=== PATIENT | female | born 1980 | race Caucasian/White ===

== ENCOUNTER 2018-12-03 22:07 | Emergency (ER) | payer MEDICAID ==
[~2018-12-03] VITALS: Ht 162.6 cm; Wt 63.6 kg
--- NOTE | 2018-12-03 22:19 | NUR ---
PATIENT TO CT AT THIS TIME.
--- NOTE | 2018-12-03 22:31 | NUR ---
PATIENT BACK FROM CT.
[2018-12-03 23:18] VITALS: BP 100/86
[2018-12-03 23:18] LABS: BASOPHILS # (AUTO) 0.1 X10'3 (0-0.2); BASOPHILS % (AUTO) 1.3 % (0-1); EOSINOPHILS # (AUTO) 0.2 X10'3 (0-0.9); EOSINOPHILS % (AUTO) 3.4 % (0-6); HEMATOCRIT 34.5 % (35.0-45.0); HEMOGLOBIN 11.9 g/dl (12.0-16.0); LYMPHOCYTES # (AUTO) 2.4 X10'3 (1.1-4.8); LYMPHOCYTES % (AUTO) 41.1 % (21-51); MEAN CORPUSCULAR HEMOGLOBIN 32.4 PG (27.0-31.0); MEAN CORPUSCULAR HGB CONC 34.4 g/dL (33.0-36.5); MEAN CORPUSCULAR VOLUME 94.1 FL (78-98); MEAN PLATELET VOLUME 7.1 FL (7.4-10.4); MONOCYTES # (AUTO) 0.5 X10'3 (0-0.9); MONOCYTES % (AUTO) 9.2 % (2-12); NEUTROPHILS # (AUTO) 2.6 X10'3 (1.8-7.7); PLATELET COUNT 342 X10'3 (140-440); RED BLOOD COUNT 3.66 X10'6 (4.20-5.60); RED CELL DISTRIBUTION WIDTH 15.5 % (11.5-14.5); WHITE BLOOD COUNT 5.9 X10'3 (4.5-11.0)
[2018-12-03 23:24] LABS: ALANINE AMINOTRANSFERASE 24 U/L (12-78); ALBUMIN 3.2 G/DL (3.4-5.0); ALBUMIN/GLOBULIN RATIO 0.8 (1.1-1.5); ALKALINE PHOSPHATASE 69 IU/L (46-116); ANION GAP 9 (8-16); ASPARTATE AMINO TRANSFERASE 21 U/L (10-37); BILIRUBIN,TOTAL 0.1 MG/DL (0.1-1.0); BLOOD UREA NITROGEN 16 MG/DL (7-18); BUN/CREATININE RATIO 26.2 (6.6-38.0); CALCIUM 8.5 MG/DL (8.5-10.1); CHLORIDE 105 MMOL/L (99-107); CREATININE 0.61 MG/DL (0.40-0.90); GLUCOSE 94 MG/DL (70-104); SODIUM 140 MMOL/L (135-145); TOTAL CARBON DIOXIDE 26.3 MMOL/L (24-32); eGFR > 90 ML/MIN
[2018-12-03 23:26] LABS: PARTIAL THROMBOPLASTIN TIME 26 SECONDS (22-32)
[2018-12-03 23:27] LABS: TROPONIN I < 0.04 NG/ML (0.0-0.05)
== END 2018-12-03 23:39 | disposition left against medical advice (07) ==
LOC: ER 22:08
DX: R42 Dizziness and giddiness (principal); R47.81 Slurred speech; R47.02 Dysphasia; Z86.73 Personal history of transient ischemic attack (TIA), and cerebral infarction without residual deficits; Z79.82 Long term (current) use of aspirin
CPT/HCPCS: 36415; 70450; 71045; 80053; 82948; 84484; 85025; 85610; 85730; 93005; 99284

== ENCOUNTER 2018-12-05 10:10 | Emergency (ER) | payer MEDICAID ==
[~2018-12-05] VITALS: Ht 157.5 cm; Wt 68.2 kg
[2018-12-05 10:31] VITALS: BP 131/102
== END 2018-12-05 11:25 | disposition left against medical advice (07) ==
LOC: ER 10:11
DX: F10.10 Alcohol abuse, uncomplicated (principal); R42 Dizziness and giddiness; Z86.73 Personal history of transient ischemic attack (TIA), and cerebral infarction without residual deficits
CPT/HCPCS: 93005; 99283

== ENCOUNTER 2019-01-05 18:28 | Emergency (ER) | payer MEDICAID ==
[~2019-01-05] VITALS: Ht 160 cm; Wt 77.2 kg
[2019-01-05] MEDS ORDERED: normal saline 1000ML IV soln IVB ONE (18:40)
[2019-01-05] MEDS ORDERED: ketorolac trometh. 30mg/ml inj. IV ONE (18:40)
[2019-01-05] MEDS ORDERED: ondansetron/PF 4mg/2ml inj IV ONE (18:40)
[2019-01-05] MEDS ORDERED: cloNIDine 0.1 mg tablet PO ONE (18:50)
[2019-01-05 19:01] LABS: URINE HCG NEGATIVE (NEG)
[2019-01-05 19:02] LABS: CLARITY,URINE CLEAR (Clear); COLOR,URINE YELLOW (Yellow); GLUCOSE, URINE NEGATIVE (Neg); KETONES,URINE NEGATIVE (Neg); LEUKOCYTE ESTERASE ,URINE NEGATIVE (Neg); NITRITES, URINE NEGATIVE (Neg); OCCULT BLOOD,URINE NEGATIVE (Neg); PROTEIN,URINE NEGATIVE (Neg); UROBILINOGEN,URINE 0.2 E.U/dL (0.2-1.0)
[2019-01-05 19:04] LABS: BASOPHILS % (AUTO) 0.5 % (0-1); EOSINOPHILS # (AUTO) 0.3 X10'3 (0-0.9); EOSINOPHILS % (AUTO) 3.5 % (0-6); HEMATOCRIT 37.3 % (35.0-45.0); HEMOGLOBIN 12.6 g/dl (12.0-16.0); LYMPHOCYTES # (AUTO) 1.8 X10'3 (1.1-4.8); LYMPHOCYTES % (AUTO) 23.4 % (21-51); MEAN CORPUSCULAR HEMOGLOBIN 32.3 PG (27.0-31.0); MEAN CORPUSCULAR HGB CONC 33.7 g/dL (33.0-36.5); MEAN CORPUSCULAR VOLUME 95.7 FL (78-98); MEAN PLATELET VOLUME 7.5 FL (7.4-10.4); MONOCYTES # (AUTO) 0.7 X10'3 (0-0.9); MONOCYTES % (AUTO) 9.6 % (2-12); NEUTROPHILS # (AUTO) 4.7 X10'3 (1.8-7.7); PLATELET COUNT 287 X10'3 (140-440); RED CELL DISTRIBUTION WIDTH 15.2 % (11.5-14.5); WHITE BLOOD COUNT 7.5 X10'3 (4.5-11.0)
[2019-01-05 19:05] LABS: UA COLLECTION TYPE CLN CATCH MIDSTREAM
[2019-01-05 19:15] LABS: ALANINE AMINOTRANSFERASE 39 U/L (12-78); ALBUMIN 3.5 G/DL (3.4-5.0); ALBUMIN/GLOBULIN RATIO 0.8 (1.1-1.5); ALKALINE PHOSPHATASE 74 IU/L (46-116); ANION GAP 11 (8-16); ASPARTATE AMINO TRANSFERASE 30 U/L (10-37); BILIRUBIN,TOTAL 0.2 MG/DL (0.1-1.0); BLOOD UREA NITROGEN 10 MG/DL (7-18); BUN/CREATININE RATIO 16.1 (6.6-38.0); CALCIUM 8.5 MG/DL (8.5-10.1); CHLORIDE 104 MMOL/L (99-107); CREATININE 0.62 MG/DL (0.40-0.90); GLUCOSE 89 MG/DL (70-104); SODIUM 139 MMOL/L (135-145); TOTAL CARBON DIOXIDE 24.4 MMOL/L (24-32); TOTAL PROTEIN 7.7 G/DL (6.4-8.2); eGFR > 90 ML/MIN
[2019-01-05] MEDS ORDERED: TRAM50TA2 PO (19:44)
[2019-01-05] MEDS ORDERED: HYDROcodone/acetaminophen 10/325mg tab PO ONE (19:45)
--- NOTE | 2019-01-05 20:13 | NUR ---
pt dc ready , has 1 more liter ns, ok per [place], to dc now. pt agreeable to plan.
[2019-01-05 20:14] VITALS: BP 134/92
== END 2019-01-05 20:15 | disposition home or self-care (01) ==
LOC: ER 18:28
DX: R10.84 Generalized abdominal pain (principal); M54.5 Low back pain; R35.0 Frequency of micturition; Z86.73 Personal history of transient ischemic attack (TIA), and cerebral infarction without residual deficits; Z79.899 Other long term (current) drug therapy
CPT/HCPCS: 36415; 74176; 80053; 81003; 81025; 85025; 96374; 96375; 99284; J1885; J2405; J7030

== ENCOUNTER 2019-01-06 09:58 | Emergency (ER) | payer MEDICAID ==
[~2019-01-06] VITALS: Ht 165.1 cm; Wt 600.0 kg
[~2019-01-06 09:58] MED LIST: TRAM50TA2 PO
== END 2019-01-06 13:24 | disposition home or self-care (01) ==
LOC: ER 09:58
DX: J02.9 Acute pharyngitis, unspecified (principal); R11.0 Nausea; F10.99 Alcohol use, unspecified with unspecified alcohol-induced disorder; Z86.73 Personal history of transient ischemic attack (TIA), and cerebral infarction without residual deficits; Z79.899 Other long term (current) drug therapy; Y90.9 Presence of alcohol in blood, level not specified
CPT/HCPCS: 87081; 87880; 99283

== ENCOUNTER 2019-01-12 07:54 | Emergency (ER) | payer MEDICAID ==
[~2019-01-12] VITALS: Ht 160 cm; Wt 77.0 kg
[2019-01-12 08:32] LABS: CLARITY,URINE SLIGHTLY CLOUDY (Clear); COLOR,URINE YELLOW (Yellow); GLUCOSE, URINE NEGATIVE (Neg); KETONES,URINE NEGATIVE (Neg); LEUKOCYTE ESTERASE ,URINE TRACE (Neg); NITRITES, URINE NEGATIVE (Neg); OCCULT BLOOD,URINE NEGATIVE (Neg); PH,URINE 5.5 (4.8-8.0); PROTEIN,URINE NEGATIVE (Neg); UROBILINOGEN,URINE 0.2 E.U/dL (0.2-1.0)
[2019-01-12 08:37] LABS: UA COLLECTION TYPE CLN CATCH MIDSTREAM
[2019-01-12 08:46] LABS: MUCUS STRANDS MODERATE /LPF (Neg); SQUAMOUS EPITHELIAL CELL,UR MANY /LPF (FEW)
[2019-01-12 08:47] LABS: BACTERIA,URINE 1+ /HPF (Neg)
[2019-01-12 08:48] LABS: RBC,URINE NONE SEEN /HPF (0-2)
[2019-01-12] MEDS ORDERED: TRAM50TA2 PO (09:05)
[2019-01-12] MEDS ORDERED: ondansetron 4mg rapidly disintigrating tab PO ONE (09:15)
[2019-01-12] MEDS ORDERED: acetaminophen 325mg tablet PO ONE (09:15)
[2019-01-12 09:30] VITALS: BP 129/85
[2019-01-12 09:43] LABS: CLARITY,URINE CLOUDY (Clear); COLOR,URINE YELLOW (Yellow); GLUCOSE, URINE NEGATIVE (Neg); KETONES,URINE 15 mg/dl (Neg); LEUKOCYTE ESTERASE ,URINE NEGATIVE (Neg); NITRITES, URINE NEGATIVE (Neg); OCCULT BLOOD,URINE NEGATIVE (Neg); PROTEIN,URINE NEGATIVE (Neg); UA COLLECTION TYPE CLN CATCH MIDSTREAM; UROBILINOGEN,URINE 0.2 E.U/dL (0.2-1.0)
[2019-01-12 10:02] LABS: SQUAMOUS EPITHELIAL CELL,UR MANY /LPF (FEW)
[2019-01-12 10:03] LABS: BACTERIA,URINE FEW /HPF (Neg); HYALINE CASTS 0-3 /LPF (NEGATIVE); RBC,URINE NONE SEEN /HPF (0-2); WBC,URINE 0-4 /HPF (0-4)
== END 2019-01-12 10:43 | disposition home or self-care (01) ==
LOC: ER 07:56
DX: M54.5 Low back pain (principal); R11.2 Nausea with vomiting, unspecified; R35.0 Frequency of micturition; Z86.73 Personal history of transient ischemic attack (TIA), and cerebral infarction without residual deficits; Z79.899 Other long term (current) drug therapy
CPT/HCPCS: 72100; 81001; 99284; J2405

== ENCOUNTER 2019-04-25 11:34 | Emergency (ER) | payer MEDICAID ==
[~2019-04-25] VITALS: Ht 157.5 cm; Wt 72.7 kg
[2019-04-25 12:10] LABS: CLARITY,URINE SLIGHTLY CLOUDY (Clear); COLOR,URINE YELLOW (Yellow); GLUCOSE, URINE NEGATIVE (Neg); KETONES,URINE NEGATIVE (Neg); LEUKOCYTE ESTERASE ,URINE SMALL (Neg); NITRITES, URINE NEGATIVE (Neg); OCCULT BLOOD,URINE TRACE-LYSED (Neg); PH,URINE 7.5 (4.8-8.0); PROTEIN,URINE NEGATIVE (Neg); UROBILINOGEN,URINE 0.2 E.U/dL (0.2-1.0)
[2019-04-25 12:11] LABS: UA COLLECTION TYPE CLN CATCH MIDSTREAM
[2019-04-25 12:13] LABS: URINE HCG NEGATIVE (NEG)
[2019-04-25 12:20] LABS: SQUAMOUS EPITHELIAL CELL,UR MANY /LPF (FEW)
[2019-04-25 12:22] LABS: BACTERIA,URINE 1+ /HPF (Neg); RBC,URINE 0-2 /HPF (0-2); WBC,URINE 0-4 /HPF (0-4)
[2019-04-25 13:18] LABS: HCG SERUM QL NEGATIVE
== END 2019-04-25 15:01 | disposition left against medical advice (07) ==
LOC: ER 11:36
DX: Z32.02 Encounter for pregnancy test, result negative (principal); Z86.73 Personal history of transient ischemic attack (TIA), and cerebral infarction without residual deficits
CPT/HCPCS: 36415; 81001; 81025; 84703; 99283

== ENCOUNTER 2020-03-18 08:38 | Emergency (ER) | payer MEDICAID ==
[~2020-03-18] VITALS: Ht 160 cm; Wt 78.0 kg
[2020-03-18 09:13] LABS: BASOPHILS % (AUTO) 0.9 % (0-1); EOSINOPHILS # (AUTO) 0.1 X10'3 (0-0.9); EOSINOPHILS % (AUTO) 3.1 % (0-6); HEMATOCRIT 39.1 % (35.0-45.0); HEMOGLOBIN 13.2 g/dl (12.0-16.0); LYMPHOCYTES % (AUTO) 31.4 % (21-51); MEAN CORPUSCULAR HEMOGLOBIN 34.2 PG (27.0-31.0); MEAN CORPUSCULAR HGB CONC 33.9 g/dL (33.0-36.5); MEAN CORPUSCULAR VOLUME 100.9 FL (78-98); MEAN PLATELET VOLUME 8.4 FL (7.4-10.4); MONOCYTES # (AUTO) 0.4 X10'3 (0-0.9); MONOCYTES % (AUTO) 11.8 % (2-12); NEUTROPHILS # (AUTO) 1.7 X10'3 (1.8-7.7); NEUTROPHILS % (AUTO) 52.8 % (42-75); PLATELET COUNT 195 X10'3 (140-440); RED BLOOD COUNT 3.87 X10'6 (4.20-5.60); RED CELL DISTRIBUTION WIDTH 14.5 % (11.5-14.5); WHITE BLOOD COUNT 3.2 X10'3 (4.5-11.0)
[2020-03-18 09:18] LABS: CLARITY,URINE SLIGHTLY CLOUDY (Clear); COLOR,URINE YELLOW (Yellow); GLUCOSE, URINE NEGATIVE (Neg); KETONES,URINE NEGATIVE (Neg); LEUKOCYTE ESTERASE ,URINE SMALL (Neg); NITRITES, URINE NEGATIVE (Neg); OCCULT BLOOD,URINE TRACE-INTACT (Neg); PROTEIN,URINE TRACE mg/dl (Neg); URINE HCG NEGATIVE (NEG); UROBILINOGEN,URINE 0.2 E.U/dL (0.2-1.0)
[2020-03-18 09:20] LABS: UA COLLECTION TYPE VOIDED
[2020-03-18 09:23] LABS: MUCUS STRANDS MANY /LPF (Neg); SQUAMOUS EPITHELIAL CELL,UR MANY /LPF (FEW)
[2020-03-18 09:24] LABS: BACTERIA,URINE 2+ /HPF (Neg); HYALINE CASTS 0-3 /LPF (NEGATIVE)
[2020-03-18 09:25] LABS: RBC,URINE 0-2 /HPF (0-2); TRANSITIONAL EPI CELLS,URINE FEW /HPF
[2020-03-18 09:25] LABS: PARTIAL THROMBOPLASTIN TIME 25 SECONDS (22-32)
[2020-03-18] MEDS ORDERED: LORazepam 2 mg/ml vial IV ONE (09:25)
[2020-03-18 09:27] LABS: ALANINE AMINOTRANSFERASE 219 U/L (12-78); ALBUMIN 3.4 G/DL (3.4-5.0); ALBUMIN/GLOBULIN RATIO 0.9 (1.1-1.5); ALKALINE PHOSPHATASE 87 IU/L (46-116); ANION GAP 8 (8-16); ASPARTATE AMINO TRANSFERASE 314 U/L (10-37); BILIRUBIN,TOTAL 0.5 MG/DL (0.1-1.0); BLOOD UREA NITROGEN 3 MG/DL (7-18); CALCIUM 8.2 MG/DL (8.5-10.1); CHLORIDE 103 MMOL/L (99-107); GLUCOSE 102 MG/DL (70-104); POTASSIUM 3.8 MMOL/L (3.5-5.1); SODIUM 141 MMOL/L (135-145); TOTAL CARBON DIOXIDE 29.8 MMOL/L (24-32); TOTAL PROTEIN 7.2 G/DL (6.4-8.2); eGFR > 90 ML/MIN
[2020-03-18 09:34] LABS: MAGNESIUM 1.8 MG/DL (1.5-2.4)
[2020-03-18 10:41] VITALS: BP 111/73
== END 2020-03-18 10:43 | disposition home or self-care (01) ==
LOC: ER 08:38
DX: R07.89 Other chest pain (principal); R05 Cough; Q21.1 Atrial septal defect; F43.20 Adjustment disorder, unspecified; F41.9 Anxiety disorder, unspecified; Z86.73 Personal history of transient ischemic attack (TIA), and cerebral infarction without residual deficits; Z87.440 Personal history of urinary (tract) infections; Z72.89 Other problems related to lifestyle
CPT/HCPCS: 36415; 71045; 80053; 81001; 81025; 83735; 83880; 84484; 85025; 85610; 85730; 93005; 96374; 99285; J2060

== ENCOUNTER 2020-05-06 09:35 | Emergency (ER) | payer MEDICAID ==
[~2020-05-06] VITALS: Ht 160 cm; Wt 78.6 kg
[2020-05-06 09:54] LABS: CLARITY,URINE SLIGHTLY CLOUDY (Clear); COLOR,URINE YELLOW (Yellow); GLUCOSE, URINE NEGATIVE (Neg); KETONES,URINE NEGATIVE (Neg); LEUKOCYTE ESTERASE ,URINE SMALL (Neg); NITRITES, URINE NEGATIVE (Neg); OCCULT BLOOD,URINE TRACE-INTACT (Neg); PH,URINE 6.5 (4.8-8.0); PROTEIN,URINE NEGATIVE (Neg)
[2020-05-06 10:00] LABS: UA COLLECTION TYPE CLN CATCH MIDSTREAM
[2020-05-06 10:04] LABS: SQUAMOUS EPITHELIAL CELL,UR MANY /LPF (FEW)
[2020-05-06 10:05] LABS: MUCUS STRANDS MODERATE /LPF (Neg)
[2020-05-06 10:08] LABS: RBC,URINE 0-2 /HPF (0-2)
[2020-05-06 10:09] LABS: BACTERIA,URINE FEW /HPF (Neg)
[2020-05-06] MEDS ORDERED: CEPH-572 PO (10:52)
[2020-05-06] MEDS ORDERED: PHEN-786 PO (10:52)
[2020-05-06 11:06] VITALS: BP 141/103
[2020-05-06 11:26] LABS: CLARITY,URINE SLIGHTLY CLOUDY (Clear); COLOR,URINE YELLOW (Yellow); GLUCOSE, URINE NEGATIVE (Neg); KETONES,URINE NEGATIVE (Neg); LEUKOCYTE ESTERASE ,URINE SMALL (Neg); NITRITES, URINE NEGATIVE (Neg); OCCULT BLOOD,URINE NEGATIVE (Neg); PROTEIN,URINE NEGATIVE (Neg)
[2020-05-06 11:34] LABS: UA COLLECTION TYPE CLN CATCH MIDSTREAM
[2020-05-06 11:37] LABS: MUCUS STRANDS FEW /LPF (Neg); SQUAMOUS EPITHELIAL CELL,UR MODERATE /LPF (FEW)
[2020-05-06 11:41] LABS: BACTERIA,URINE FEW /HPF (Neg)
[2020-05-06 11:42] LABS: WBC,URINE 0-4 /HPF (0-4)
[2020-05-06 11:43] LABS: RBC,URINE NONE SEEN /HPF (0-2)
== END 2020-05-06 12:13 | disposition home or self-care (01) ==
LOC: ER 09:35
DX: N39.0 Urinary tract infection, site not specified (principal); R11.2 Nausea with vomiting, unspecified; I63.9 Cerebral infarction, unspecified; Z79.899 Other long term (current) drug therapy
CPT/HCPCS: 81001; 87088; 99283

== ENCOUNTER 2020-07-10 07:13 | Emergency (ER) | payer MEDICAID ==
[~2020-07-10] VITALS: Ht 157.5 cm; Wt 77.0 kg
[~2020-07-10 07:13] MED LIST changes: +PHEN-786 PO; -TRAM50TA2 PO
[2020-07-10] MEDS ORDERED: normal saline 1000ML IV soln IVB ONE (07:30)
[2020-07-10] MEDS ORDERED: ondansetron/PF 4mg/2ml inj IV ONE (07:30)
[2020-07-10] MEDS ORDERED: pantoprazole 40 MG vial IV ONE (07:30)
[2020-07-10 07:39] LABS: URINE HCG NEGATIVE (NEG)
[2020-07-10 07:41] LABS: CLARITY,URINE CLOUDY (Clear); GLUCOSE, URINE NEGATIVE (Neg); KETONES,URINE 15 mg/dl (Neg); LEUKOCYTE ESTERASE ,URINE LARGE (Neg); NITRITES, URINE POSITIVE (Neg); OCCULT BLOOD,URINE TRACE-INTACT (Neg); PROTEIN,URINE TRACE mg/dl (Neg)
[2020-07-10 07:44] LABS: UA COLLECTION TYPE CLN CATCH MIDSTREAM
[2020-07-10 07:45] LABS: COLOR,URINE DARK YELLOW (Yellow)
[2020-07-10 07:47] LABS: BACTERIA,URINE 4+ /HPF (Neg); MUCUS STRANDS NONE SEEN /LPF (Neg); RBC,URINE 0-2 /HPF (0-2); SQUAMOUS EPITHELIAL CELL,UR MODERATE /LPF (FEW); TRANSITIONAL EPI CELLS,URINE FEW /HPF; WBC CLUMPS,URINE MODERATE /HPF (NEGATIVE); WBC,URINE TNTC /HPF (0-4)
[2020-07-10 08:20] LABS: EOSINOPHILS # (AUTO) 0.1 X10'3 (0-0.9); EOSINOPHILS % (AUTO) 1.7 % (0-6); HEMATOCRIT 41.2 % (35.0-45.0); HEMOGLOBIN 14.1 g/dl (12.0-16.0); LYMPHOCYTES # (AUTO) 0.8 X10'3 (1.1-4.8); LYMPHOCYTES % (AUTO) 22.1 % (21-51); MEAN CORPUSCULAR HGB CONC 34.2 g/dL (33.0-36.5); MEAN CORPUSCULAR VOLUME 105.2 FL (78-98); MEAN PLATELET VOLUME 8.7 FL (7.4-10.4); MONOCYTES # (AUTO) 0.6 X10'3 (0-0.9); MONOCYTES % (AUTO) 15.8 % (2-12); NEUTROPHILS # (AUTO) 2.2 X10'3 (1.8-7.7); NEUTROPHILS % (AUTO) 59.4 % (42-75); PLATELET COUNT 174 X10'3 (140-440); RED BLOOD COUNT 3.92 X10'6 (4.20-5.60); RED CELL DISTRIBUTION WIDTH 13.9 % (11.5-14.5); WHITE BLOOD COUNT 3.8 X10'3 (4.5-11.0)
[2020-07-10] MEDS ORDERED: CefTRIAXone/D5W-Rocephin 1gm 50 ML IV ONE (08:20)
[2020-07-10 08:36] LABS: ALANINE AMINOTRANSFERASE 217 U/L (12-78); ALBUMIN 3.8 G/DL (3.4-5.0); ALBUMIN/GLOBULIN RATIO 0.9 (1.1-1.5); ALKALINE PHOSPHATASE 157 IU/L (46-116); ANION GAP 14 (8-16); ASPARTATE AMINO TRANSFERASE 462 U/L (10-37); BILIRUBIN,TOTAL 1.6 MG/DL (0.1-1.0); BLOOD UREA NITROGEN 6 MG/DL (7-18); BUN/CREATININE RATIO 8.2 (6.6-38.0); CHLORIDE 99 MMOL/L (99-107); CREATININE 0.73 MG/DL (0.40-0.90); GLUCOSE 90 MG/DL (70-104); LIPASE 131 U/L (73-393); POTASSIUM 3.5 MMOL/L (3.5-5.1); SODIUM 140 MMOL/L (135-145); TOTAL CARBON DIOXIDE 27.1 MMOL/L (24-32); TOTAL PROTEIN 8.2 G/DL (6.4-8.2); eGFR 88 ML/MIN
[2020-07-10 08:59] LABS: PLATELET ESTIMATE NORMAL; STOMATOCYTES 1+; TOTAL CELLS COUNTED 100
[2020-07-10] MEDS ORDERED: CEPH500C5 PO (09:20)
[2020-07-10] MEDS ORDERED: ONDA4TAB6 PO (09:21)
[2020-07-10 09:47] VITALS: BP 154/89
== END 2020-07-10 09:48 | disposition home or self-care (01) ==
LOC: ER 07:14
DX: E86.0 Dehydration (principal); N39.0 Urinary tract infection, site not specified; F10.10 Alcohol abuse, uncomplicated; J45.909 Unspecified asthma, uncomplicated; Z87.440 Personal history of urinary (tract) infections; Z86.73 Personal history of transient ischemic attack (TIA), and cerebral infarction without residual deficits; Z72.89 Other problems related to lifestyle; Z79.2 Long term (current) use of antibiotics; Z79.899 Other long term (current) drug therapy; Y90.9 Presence of alcohol in blood, level not specified
CPT/HCPCS: 36415; 80053; 81001; 81025; 83690; 85007; 85025; 87088; 87186; 96361; 96365; 96375; 99284; C9113; J0696; J2405; J7030; 87077